=== PATIENT | male | born 1990 | race African-American/Black ===

== ENCOUNTER 2024-01-02 15:29 | Emergency (ER) | payer MEDICAID ==
[~2024-01-02] VITALS: Ht 188 cm; Wt 77.1 kg
[2024-01-02 15:55] VITALS: BP 130/79; TEMP 98.2; O2SAT 97
[2024-01-02] MEDS ORDERED: SULF1TAB48 PO (16:41)
== END 2024-01-02 16:45 | disposition home or self-care (01) ==
LOC: ER 15:29
DX: T81.41XA Infection following a procedure, superficial incisional surgical site, initial encounter (principal); L02.31 Cutaneous abscess of buttock